=== PATIENT | male | born 2000 | race Caucasian/White ===

== ENCOUNTER 2021-03-18 01:52 | Emergency (ER) | payer SELFPAY ==
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
[2021-03-18 02:02] VITALS: BP 144/79; PULSE 119; RESP 22; O2SAT 95; BMI 22.2
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
--- NOTE | 2021-03-18 03:02 | PC.NURSE ---
Lidocaine as ordered was unavailable in pyxis. This RN overrode lidocaine 1% 20mL which was available in pyxis, provided to Dr Laurent for bedside use. Primary RN Hannah made aware. Dr Laurent at bedside suturing pt at this time with assistance from TARAN Tellez
--- NOTE | 2021-03-18 03:32 | PC.NURSE ---
IN ROOM FOR SUTURING FACE. PT REMAINS ALERT AND SPEAKING WITH [employer]. PT AWAITING FOR CT RESULTS. PT UP TO RESTROOM WITH STEADY EVEN GAIT.
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
== END 2021-03-18 04:29 | disposition home or self-care (01) ==
PROVIDERS: Emergency Provider Emergency Medicine Emergency Medical Services
DX: S02.2XXA Fracture of nasal bones, initial encounter for closed fracture (principal); S01.01XA Laceration without foreign body of scalp, initial encounter; S01.112A Laceration without foreign body of left eyelid and periocular area, initial encounter; S01.81XA Laceration without foreign body of other part of head, initial encounter; S01.411A Laceration without foreign body of right cheek and temporomandibular area, initial encounter; S00.33XA Contusion of nose, initial encounter; S00.03XA Contusion of scalp, initial encounter; S00.83XA Contusion of other part of head, initial encounter; Y00.XXXA Assault by blunt object, initial encounter; Y93.89 Activity, other specified; Y92.481 Parking lot as the place of occurrence of the external cause; Y99.9 Unspecified external cause status
CPT/HCPCS: 12032; 12054; 70450; 70486; 99283; 99285